=== PATIENT | female | born 1955 | race Caucasian/White ===

== ENCOUNTER 2017-05-15 09:14 | Emergency (ER) | payer SELFPAY ==
[~2017-05-15] VITALS: Ht 162.6 cm; Wt 65.9 kg
[2017-05-15] MEDS ORDERED: BENA5TAB26 PO (09:20)
[2017-05-15] MEDS ORDERED: KETOROLAC TROMETHAMINE 60 MG/2 ML VIAL IM ONE (10:30)
[2017-05-15] MEDS ORDERED: DIAZEPAM 5 MG TABLET PO ONE (10:30)
[2017-05-15 11:25] VITALS: BP 178/87
== END 2017-05-15 11:49 | disposition home or self-care (01) ==
LOC: EMS 09:16
DX: R51 Headache (principal); I10 Essential (primary) hypertension
CPT/HCPCS: 96372; 99283; J1885